=== PATIENT | female | born 1945 | race Caucasian/White ===

== ENCOUNTER 2024-04-30 15:30 | Emergency (ER) | payer OTHER ==
[~2024-04-30] VITALS: Ht 144.8 cm; Wt 68.0 kg
[2024-04-30 15:47] VITALS: O2SAT 98
[2024-04-30 16:11] LABS: BASOPHILS % 0.4 % (0.0-2.0); EOSINOPHILS % 0.8 % (0.0-5.0); HEMATOCRIT. 35.9 % (36.0-48.0); LYMPHOCYTES % 11.4 % (20.0-50.0); MEAN CORPUSCULAR HEMOGLOBIN 29.8 pg (28.0-32.0); MEAN CORPUSCULAR HGB CONC 33.3 g/dL (31.0-37.0); MEAN CORPUSCULAR VOLUME 89.4 fL (81.0-99.0); MEAN PLATELET VOLUME 8.5 fl (7.4-10.4); NEUTROPHILS % 80.4 % (40.0-76.0); PLATELET 136 x1000/uL (130-400); RED BLOOD CELL COUNT 4.01 mill/uL (4.2-5.4); RED CELL DISTRIBUTION WIDTH 13.9 % (11.6-14.6)
[2024-04-30 16:18] LABS: POTASSIUM 4.3 mEq/L (3.5-5.1)
[2024-04-30] MEDS: MECLIZINE 25MG TABLET PO ONE (18:46)
[2024-04-30 19:00] LABS: CLARITY URINE CLOUDY (CLEAR); COLOR URINE DARK YELLOW (YELLOW); GLUCOSE URINE NEGATIVE (NEGATIVE); KETONES URINE 1+ (NEGATIVE); LEUKOCYTE ESTERASE URINE TRACE (NEGATIVE); NITRITE URINE NEGATIVE (NEGATIVE); OCCULT BLOOD URINE NEGATIVE (NEGATIVE); PH URINE 5.5 (4.5-8.0); PROTEIN URINE 2+ (NEGATIVE); SPECIFIC GRAVITY URINE 1.022 (1.005-1.030)
[2024-04-30 19:08] LABS: BACTERIA URINE TRACE; RBC URINE 0-2 /hpf (0-2); SQUAMOUS EPITHELIAL CELL URINE 1+ /lpf (RARE/1+); WBC URINE 0-2 /hpf (0-2)
[2024-04-30 19:09] LABS: HYALINE CASTS URINE 0-5 /lpf
[2024-04-30 20:38] LABS: TROPONIN I HIGH SENSITIVITY < 4 ng/L (3.0-34)
[2024-04-30] MEDS ORDERED: MECL-299 MT (20:42)
[2024-04-30 21:26] VITALS: BP 154/55; PULSE 68; RESP 15; TEMP 36.50292; O2SAT 97
== END 2024-04-30 21:27 | disposition home or self-care (01) ==
LOC: ER 15:30
DX: R42 Dizziness and giddiness (principal); I10 Essential (primary) hypertension; E11.9 Type 2 diabetes mellitus without complications
CPT/HCPCS: 99285; 70450; 71045; 80048; 81003; 85025; 84484; 36415; 93005; J8597